=== PATIENT | female | born 1980 | race Caucasian/White ===

== ENCOUNTER 2023-12-15 20:30 | Emergency (ER) | payer OTHER, SELFPAY ==
--- NOTE | 2023-12-15 | ECG_ITS ---
Test Reason : CHEST PAIN Blood Pressure : / mmHG Vent. Rate : 095 BPM Atrial Rate : 095 BPM P-R Int : 146 ms QRS Dur : 094 ms QT Int : 350 ms P-R-T Axes : 077 -24 065 degrees QTc Int : 440 ms Normal sinus rhythm Possible Left atrial enlargement Incomplete right bundle branch block Nonspecific ST and T wave abnormality Abnormal ECG No previous ECGs available Referred By: Generic ED Physician Electronically Signed By:WILLIE LINDSAY
--- NOTE | ~2023-12-15 | CT_ITS ---
EXAMINATION: CT ANGIOGRAM OF THE CHEST WITH AND WITHOUT CONTRAST (CT PULMONARY ANGIOGRAM FOR PE) CLINICAL INFORMATION: Chest pain, dyspnea on exertion, palpitation rule out PE COMPARISON: None available. TECHNIQUE: Prior to contrast administration, noncontrast localization images were obtained. Subsequently, multidetector volumetric imaging was performed from the thoracic inlet to below the diaphragms following the administration of 65 mL Omnipaque 350 intravenous contrast. No contrast reaction reported Sagittal, coronal, and MIP oblique sagittal reformatted images were obtained on the CT workstation, uploaded to PACS, and reviewed. This CT examination was performed using dose optimization techniques as appropriate, variously including the following: *Automated exposure control *Adjustment of mA and/or kV according to patient size (this includes techniques or standardized protocols for targeted exams where dose is matched to indication/reason for exam; i.e. extremities or head) *Use of iterative reconstruction technique Total exam dose-length product 234 mGy-cm FINDINGS: QUALITY OF STUDY/CONTRAST BOLUS: Satisfactory. PULMONARY ARTERIES: No pulmonary emboli. THORACIC AORTA: No aneurysm. LUNG: No focal consolidation, nodules or masses. PLEURA: No pleural effusion or pneumothorax. MEDIASTINUM: Normal heart size. No pericardial effusion. No hilar or mediastinal lymphadenopathy. No evidence of septal bowing or right heart strain. CORONARY ARTERY CALCIFICATION: None visualized on this study. CHEST WALL/AXILLA: No axillary or internal mammary lymphadenopathy. OSSEOUS STRUCTURES: No acute fractures are identified. Ribs appear intact. There is spine with slight sigmoid scoliosis. Vertebral body heights are normal. UPPER ABDOMEN: Unremarkable. No reflux of contrast into the hepatic veins to suggest elevated right heart pressures. CT/CT angio chest PE protocol IMPRESSION: No acute pulmonary findings. No evidence of pulmonary emboli. VTE: negative.
[2023-12-15 20:48] VITALS: BP 132/75; PULSE 86; RESP 18; TEMP 36.8; O2SAT 99; BMI 22.0
[2023-12-15 20:51] LABS: MANUAL DIFF FLAG NO
[2023-12-15 20:56] LABS: Basophils Percent Auto 0.5 % (0-2); Eosinophils Absolute Auto 0.2 X10*3/uL (0.0-0.4); Eosinophils Percent Auto 2.8 % (0-4); Hemoglobin 13.5 g/dl (12.0-16.0); Imm Gran Abs Auto 0.01 X10*3/uL (0.00-0.03); Imm Gran Pct Auto 0.1 % (0.0-0.4); Lymphocytes Percent Auto 40.5 % (20-40); Mean Corpuscular HGB Conc 35.5 g/dl (31.0-35.0); Mean Corpuscular Hemoglobin 32.9 pg (27.0-33.0); Mean Corpuscular Volume 92.7 fL (80.0-98.0); Mean Platelet Volume 9.8 fL (9.4-12.3); Monocytes Absolute Auto 0.7 X10*3/uL (0.1-1.2); Monocytes Percent Auto 9.6 % (2-11); Neutrophils Absolute Auto 3.5 x10*3/uL (2.0-8.3); Neutrophils Percent Auto 46.5 % (45-73); Platelet Count 233 X10*3/uL (160-400); Red Cell Distribution Width 11.9 % (11.0-16.0); White Blood Count 7.4 X10*3/uL (4.8-10.8)
[2023-12-15 21:06] LABS: Alanine Aminotransferase 14 U/L (0-31); Albumin Level 4.2 g/dL (3.5-5.0); Alkaline Phosphatase 46 U/L (39-117); Anion Gap 12 (12-20); Aspartate Amino Transferase 14 U/L (5-31); Bilirubin Total 0.3 mg/dL (0.0-1.0); Blood Urea Nitrogen 12 mg/dL (9-16); Carbon Dioxide 24 mmol/L (22-29); Chloride 108 mmol/L (96-108); Creatinine Clr Calc Pharmacy 95.3; Estimated Glomerular Filt Rate > 60; Glucose Random 130 mg/dL (60-115); Potassium 3.3 mmol/L (3.3-5.1); Sodium 141 mmol/L (135-145); Total Protein 7.5 g/dL (6.5-8.0)
[2023-12-15 21:14] LABS: Troponin-I High Sensitivity < 2.7 ng/L (<3.5-17.0)
--- NOTE | 2023-12-15 21:27 | ED.CHESTPAIN ---
HPI - Chest Pain General Chief Complaint: Chest Pain Stated Complaint: sob/heart papatations Time Seen by Provider: 12/15/23 21:26 Source: patient and other (Friend) Mode of arrival: ambulatory Limitations: no limitations History of Present Illness HPI narrative: 42-year-old female with a history of hypothyroidism on thyroid replacement therapy who presents emergency department for evaluation of palpitations, chest pain, shortness of breath and dyspnea on exertion. Patient states that she developed chest pain earlier in the day. She describes the pain is a pressure-like sensation located in her anterior chest. She states that earlier in the day when she walked up her stairs she felt very short of breath and then developed a pounding sensation in her heart. She describes as pounding sensation is a fast heart rate with an occasional skipped beat. She states she felt dizzy and short of breath with the fast heart rate. She also had some diaphoresis. She denied nausea, pain radiating to her neck, jaw, back or arms. She states however she did have a tingly sensation in her hands. Patient states that she had her thyroid function checked on Saturday (5 days prior) and was told that it was normal and she did not adjustment in her levothyroxine. Patient states she does have nonpitting edema in both lower extremities secondary to her hypothyroidism. This is unchanged. Patient is not on any hormone replacements and she has not traveled anywhere recently. She has not noticed any increased swelling or pain in her lower extremities. She states she does take supplements. Related Data Allergies Allergy/AdvReac Type Severity Reaction Status Date / Time No Known Allergies Allergy Verified 12/15/23 20:48 Review of Systems Review of Systems: Yes all other systems are reviewed and are negative [facility] Past Medical History [facility] Narrative: Past medical history: Hypothyroidism on levothyroxine. Social history: She denies tobacco use, alcohol use and drug use. Social History Social History Unable to assess alcohol history related to: Unknown Smoked in Last 30 Days: No Use of substances other than those prescribed or required for medical reasons: No Advance Directives: No Advance Directives Information Provided: No Patient : No Physical Exam Vital Signs: Vital Signs: Last Vital Signs Temp 98.2 F 12/15/23 20:48 Pulse 86 12/15/23 20:48 Resp 18 12/15/23 20:48 BP 132/75 12/15/23 20:48 Pulse Ox 99 12/15/23 20:48 O2 Del Method Room Air 12/15/23 20:48 BMI result Body Mass Index 22.0 Vital signs were normal Exam: General: Awake, alert in no distress Head: Normocephalic, atraumatic EENT: PERRL, Lids normal, sclera normal, conjunctiva normal, nose normal , ears normal, throat without erythema or exudates Neck: Supple, no adenopathy Lung: breath sounds symmetric, no wheezing, rales or rhonchi Chest: symmetric movement, nontender Heart: regular rate and rhythm, normal S1, S2 no murmurs or rubs Abdomen: soft, non-tender, nondistended, normal bowel sounds Back: no vertebral tenderness, no CVAT Extremities: no deformities, moves all extremities symmetrically, no pitting edema, no tenderness palpation of her calves, negative Homans sign bilaterally Neuro: Awake, alert, oriented, normal speech, moves all extremities symmetrically Psych: Pleasant, cooperative Medications Administered Discontinued Medications Generic Name Dose Route Start Last Admin Trade Name Smithq PRN Reason Stop Dose Admin Iohexol 100 ml 12/15/23 22:17 12/15/23 22:22 Iohexol 350 Mg/Ml 100 Ml Infus..Btl IV 12/15/23 22:18 65 ml ONCE ONE Administration Medical Decision Making Medical Decision Making MDM Narrative: 42-year-old female with a history of hypothyroidism on thyroid replacement therapy who presents emergency department for evaluation of palpitations, chest pain, shortness of breath and dyspnea on exertion with symptoms beginning earlier today. Patient initially had chest pressure in her anterior chest. She reports when she walked up her stairs she then developed palpitations which she describes as a fast heartbeat with occasional skipped beat. She states she had associated dyspnea on exertion and some slight diaphoresis associated with the palpitations. She also felt dizzy and lightheaded and developed tingling this in her hands and feet with no perioral tingling or carpal pedal spasm. Patient has not been any long trips, takes no estrogen supplements and denied any pain or increased swelling in her lower extremities Vital signs were normal. Physical exam was unremarkable. Differential diagnosis: ?Includes but is not limited to myocardial infarction, myocardial infarction, palpitations, torsades, electrolyte abnormalities, anemia, hypothyroidism, hyperthyroidism Following evaluation was ordered: CBC, CMP, D-dimer, PT/INR, PTT, TSH with reflex T4, magnesium, COVID-19, influenza, EKG, CT pulmonary angiogram PE protocol Patient was initially treated with the following: potline monitor, O2 saturation monitor Course: 00:12 hour My interpretation patient's laboratory evaluation is as follows: CBC was normal. PT/INR PTT were normal. D-dimer was below detectable limits. CMP revealed an elevated glucose of 130. High sensitive troponin I was below detectable limits which is reassuring. TSH was elevated 5.24-free T4 is pending. Magnesium was normal at 2.1. COVID-19, influenza and RSV were negative. Patient's CT revealed no PE or other acute abnormalities to explain the patient's symptoms. Patient has been on the classroom monitor since being in the emergency department and she has had no arrhythmias noted Patient is wearing a smart watch and she states that during her palpitations her fast his heart rate was 110 which is also reassuring. Patient will be discharged home and referred to Cardiology for evaluation of palpitations Admission/Observation Consideration of admission/observation: Escalation of care including admission/observation considered Lab Data MDM Lab Attestation statement: I reviewed the patient's lab results. 12/15/23 20:47 12/15/23 20:47 Labs: Lab Results 12/15/23 12/15/23 Range/Units 20:47 22:01 WBC 7.4 (4.8-10.8) X10*3/uL RBC 4.10 L (4.20-5.50) X10*6/uL Hgb 13.5 (12.0-16.0) g/dl Hct 38.0 (37.0-47.0) % MCV 92.7 (80.0-98.0) fL MCH 32.9 (27.0-33.0) pg MCHC 35.5 H (31.0-35.0) g/dl RDW 11.9 (11.0-16.0) % Plt Count 233 (160-400) X10*3/uL MPV 9.8 (9.4-12.3) fL Immature Gran % (Auto) 0.1 (0.0-0.4) % Neut % (Auto) 46.5 (45-73) % Lymph % (Auto) 40.5 H (20-40) % [place] % (Auto) 9.6 (2-11) % Eos % (Auto) 2.8 (0-4) % Baso % (Auto) 0.5 (0-2) % Lymph # (Auto) 3.0 (1.2-4.9) X10*3/uL [place] # (Auto) 0.7 (0.1-1.2) X10*3/uL Eos # (Auto) 0.2 (0.0-0.4) X10*3/uL Baso # (Auto) 0.0 (0.0-0.2) X10*3/uL Abs Immat Gran (auto) 0.01 (0.00-0.03) X10*3/uL Absolute Neuts (auto) 3.5 (2.0-8.3) x10*3/uL Absolute Nucleated RBC 0.000 (0.0-0.012) X10*3/uL Nucleated RBC % (auto) 0.0 (0.0-0.2) /100WBC PT 11.3 (11.1-13.3) SEC INR 0.9 (0.9-1.1) APTT 28.2 (26.0-36.8) SEC D-Dimer High Sensitivty < 150 NG/ML Sodium 141 (135-145) mmol/L Potassium 3.3 (3.3-5.1) mmol/L Chloride 108 (96-108) mmol/L Carbon Dioxide 24 (22-29) mmol/L Anion Gap 12 (12-20) BUN 12 (9-16) mg/dL Creatinine 0.82 (0.5-1.4) mg/dL Estim Creat Clear Calc 95.3 Estimated GFR > 60 Random Glucose 130 H (60-115) mg/dL Calcium 10.0 (8.4-10.2) mg/dL Magnesium 2.1 (1.6-2.6) mg/dL Total Bilirubin 0.3 (0.0-1.0) mg/dL AST 14 (5-31) U/L ALT 14 (0-31) U/L Alkaline Phosphatase 46 (39-117) U/L Troponin I High Sens < 2.7 (<3.5-17.0) ng/L Total Protein 7.5 (6.5-8.0) g/dL Albumin 4.2 (3.5-5.0) g/dL TSH 5.24 H (0.32-4.0) uIU/mL Free T4 0.98 (0.71-1.85) ng/dL Influenza Type A (PCR) NEGATIVE (Negative) Influenza Type B (PCR) NEGATIVE (Negative) RSV RNA Qual (PCR) NEGATIVE (Negative) SARS-CoV-2 RNA (RT-PCR) NEGATIVE (Negative) Independent Interpretation I performed an independent interpretation of an: EKG Interpretation: My interpretation patient's 12 EKG done at 20:37 hours is as follows: Normal sinus rhythm rate of 96, normal [place] interval, QRS duration, prolonged QTC of 698 milliseconds, no ST segment elevation, no ST segment depression, flattened T-waves V4 through V 6, RR prime V1 consistent with incomplete right bundle-branch block no PACs, no PVCs Radiology Impression Discussion of test interpretation with radiology: I have reviewed the radiologist's reading. Radiologist Impression: CT angio chest PE protocol IMPRESSION: No acute pulmonary findings. No evidence of pulmonary emboli. VTE: negative. Dictated By: n Independent Historian Clinical information obtained from an independent historian. History obtained from or confirmed by: Friend Discharge Plan Discharge Clinical Impression: Heart palpitations, Dyspnea, Prolonged Q-T interval on ECG Patient Disposition: Home, Self-Care Additional Instructions: Your blood work was unremarkable except for an elevated TSH of 5.24. Our upper limit is less than 4.0. At this time, I do not think that your thyroid disease is the cause of your palpitations since usually fast heart rates are caused by you being hyperthyroid and not hypothyroid. Continue to take your thyroid medication as prescribed by your provider. The CT pulmonary angiogram PE protocol did not reveal any blood clots in your lungs which is reassuring. There were no other abnormalities noted of your lungs by the radiologist which is also reassuring. Your EKG did reveal a prolonged QT/ QTC interval. Sometimes this can cause people to have arrhythmias (fast heart rates). You will need to follow-up with a passenger car conductor to further evaluate your palpitations. You can call our passenger car conductor on-call and try to get the next available appointment or you can have your primary care doctor refer you to a passenger car conductor. Continue taking your supplements and your other medications as prescribed by your provider. Follow-up with your doctor in 2 days. Please return to the emergency department if your symptoms get worse or if you develop any symptoms that are concerning to you. Referrals: Quintin Perez MD [Physician] - 2 weeks (Palpitations, prolonged QTC)
[2023-12-15 21:29] LABS: Influenza A PCR NEGATIVE (Negative); Influenza B PCR NEGATIVE (Negative); Resp Syncy Virus RNA Qual PCR NEGATIVE (Negative); SARS COV2 PCR INHOUSE NEGATIVE (Negative)
[2023-12-15 22:13] LABS: INTERNATIONAL NORM RATIO 0.9 (0.9-1.1); Prothrombin Time 11.3 SEC (11.1-13.3)
[2023-12-15 22:15] LABS: Partial Thromboplastin Time 28.2 SEC (26.0-36.8)
[2023-12-15 22:16] LABS: D Dimer High Sensitivity < 150 NG/ML
[2023-12-15] MEDS: iohexoL 350 MG/ML 100 ML INFUS..BTL IV (22:22)
[2023-12-15 22:30] LABS: TSH reflex Free T4 5.24 uIU/mL (0.32-4.0)
[2023-12-15 22:37] LABS: Magnesium 2.1 mg/dL (1.6-2.6)
[2023-12-15 23:25] LABS: Free T4 (Free Thyroxine) 0.98 ng/dL (0.71-1.85)
[2023-12-16 00:37] VITALS: PULSE 78; RESP 16; O2SAT 100
== END 2023-12-16 00:38 | disposition home or self-care (01) ==
PROVIDERS: Emergency Medicine; Emergency Provider Emergency Medicine Emergency Medical Services
DX: R07.89 Other chest pain (principal); R00.2 Palpitations; R06.02 Shortness of breath; R94.31 Abnormal electrocardiogram [ECG] [EKG]; Z20.822 Contact with and (suspected) exposure to COVID-19; Z11.52 Encounter for screening for COVID-19; Z79.899 Other long term (current) drug therapy
CPT/HCPCS: 0241U; 36415; 71275; 80053; 83735; 84439; 84443; 84484; 85025; 85379; 85610; 85730; 93005; 99284; 99285; Q9967

== ENCOUNTER → 2023-12-15 20:37 | Outpatient (BNV) | payer OTHER, SELFPAY | PROVIDERS: Emergency Provider Emergency Medicine Emergency Medical Services; Visit Provider Internal Medicine | DX: R94.31 Abnormal electrocardiogram [ECG] [EKG] (principal); R07.9 Chest pain, unspecified | CPT/HCPCS: 93010 ==